=== PATIENT | female | born 1980 | race Two or more races ===

== ENCOUNTER 2017-06-11 15:00 | Emergency (ER) | payer MEDICAID, OTHER ==
[~2017-06-11] VITALS: Ht 162.6 cm; Wt 81.6 kg
[~2017-06-11 15:00] MED LIST: PREN-59 PO
[2017-06-11 15:11] VITALS: BP 145/72
== END 2017-06-11 15:35 | disposition home or self-care (01) ==
LOC: ER 15:03
DX: H10.31 Unspecified acute conjunctivitis, right eye (principal)
CPT/HCPCS: 99283; A4606; Z7610